=== PATIENT | female | born 1960 | race African-American/Black ===

== ENCOUNTER 2019-04-29 09:34 | Emergency (ER) | payer MEDICARE, MEDICAID ==
[~2019-04-29] VITALS: Ht 177.8 cm; Wt 110.0 kg
[~2019-04-29 09:34] MED LIST: BENAZEPRIL; VICODIN
[2019-04-29 09:35] VITALS: BP 0/0
== END 2019-04-29 09:50 | disposition expired ==
LOC: ER 09:47
DX: I46.9 Cardiac arrest, cause unspecified (principal); F14.90 Cocaine use, unspecified, uncomplicated; J45.909 Unspecified asthma, uncomplicated; Z88.0 Allergy status to penicillin; Z90.710 Acquired absence of both cervix and uterus; Z88.6 Allergy status to analgesic agent
CPT/HCPCS: 92950; 99285